=== PATIENT | male | born 1950 | race Two or more races ===

== ENCOUNTER 2020-04-04 07:11 | Day surgery (SDC) | payer MEDICARE, OTHER ==
[~2020-04-04] VITALS: Ht 180.3 cm; Wt 98.5 kg
[2020-04-04 07:30] VITALS: BP 131/84
[2020-04-04] MEDS ORDERED: FURO40TA4 PO (07:37)
[2020-04-04] MEDS ORDERED: SPIR50TA5 PO (07:37)
[2020-04-04] MEDS ORDERED: OMEP-50 PO (07:38)
[2020-04-04] MEDS ORDERED: albumin 25% 100mL bottle x 1 IV PRN (07:45)
[2020-04-04 09:09] VITALS: BP 130/79
[2020-04-04 09:24] VITALS: BP 133/66
[2020-04-04 09:39] VITALS: BP 125/67
[2020-04-04 09:54] VITALS: BP 130/68
[2020-04-04 10:09] VITALS: BP 130/71
[2020-04-04 11:30] LABS: GLUCOSE,BODY FLUID 111 MG/DL; LDH,BODY FLUID 45 U/L
[2020-04-04 11:44] LABS: TOTAL PROTEIN,BODY FLUID < 2.0 G/DL
[2020-04-04] MEDS ORDERED: FLU VACC QS2020-21(6MOS UP)/PF 60 MCG/0.5 ML SYRINGE IMVAC ONE (12:05)
[2020-04-04 12:10] LABS: BFAPPEAR HAZY; BFCOLOR YELLOW
[2020-04-04 12:11] LABS: BF MESOTHELIAL CELLS MANY; BF RBC COUNT 2380 /CU MM; BF WBC COUNT 131 /CU MM (0-1000); BFVOLUME 63 ML; LYMPHOCYTES,BODY FLUID 72 %; MONOCYTES,BODY FLUID 21 %; NEUTROPHILS,BODY FLUID 7 %
== END 2020-04-04 11:30 | disposition home or self-care (01) ==
LOC: SSTAY O 07:11
PROVIDERS: ATTEND Radiology Vascular & Interventional Radiology
DX: R18.8 Other ascites (principal)
CPT/HCPCS: 49083; 76700; 82945; 83615; 84157; 87070; 89051

== ENCOUNTER 2020-04-19 07:39 | Day surgery (SDC) | payer MEDICARE, OTHER ==
[~2020-04-19] VITALS: Ht 180.3 cm; Wt 93.3 kg
[~2020-04-19 07:39] MED LIST: FURO40TA4 PO; OMEP-50 PO; SPIR50TA5 PO
[2020-04-19 07:52] VITALS: BP 130/78
[2020-04-19] MEDS ORDERED: albumin 25% 100mL bottle x 1 IV PRN (08:10)
[2020-04-19] MEDS ORDERED: NO HOME MEDS (08:18)
[2020-04-19 09:06] VITALS: BP 130/78
[2020-04-19 09:15] VITALS: BP 107/62
[2020-04-19 09:30] VITALS: BP 105/56
[2020-04-19 09:45] VITALS: BP 110/70
== END 2020-04-19 09:55 | disposition home or self-care (01) ==
LOC: SSTAY O 07:39
PROVIDERS: ATTEND Radiology Vascular & Interventional Radiology
DX: R18.8 Other ascites (principal); K21.9 Gastro-esophageal reflux disease without esophagitis; Z98.890 Other specified postprocedural states; Z87.891 Personal history of nicotine dependence; Z79.899 Other long term (current) drug therapy
CPT/HCPCS: 49083

== ENCOUNTER 2020-04-29 08:13 | Day surgery (SDC) | payer MEDICARE, OTHER ==
[~2020-04-29] VITALS: Ht 180.3 cm; Wt 92.9 kg
[~2020-04-29 08:13] MED LIST changes: -FURO40TA4 PO; +NO HOME MEDS; -OMEP-50 PO; -SPIR50TA5 PO
[2020-04-29 08:35] VITALS: BP 113/73
[2020-04-29] MEDS ORDERED: albumin 25% 100mL bottle x 1 IV PRN (08:35)
[2020-04-29] MEDS ORDERED: FURO-150 PO (08:46)
[2020-04-29 09:04] VITALS: BP 125/76
[2020-04-29 09:19] VITALS: BP 103/70
== END 2020-04-29 09:40 | disposition home or self-care (01) ==
LOC: SSTAY O 08:13
PROVIDERS: ATTEND Radiology Diagnostic Radiology
DX: R18.8 Other ascites (principal); K21.9 Gastro-esophageal reflux disease without esophagitis; Z98.890 Other specified postprocedural states; Z79.899 Other long term (current) drug therapy
CPT/HCPCS: 49083

== ENCOUNTER 2020-05-09 08:36 | Day surgery (SDC) | payer MEDICARE, OTHER ==
[~2020-05-09] VITALS: Ht 180.3 cm; Wt 92.3 kg
[~2020-05-09 08:36] MED LIST changes: +FURO-150 PO; -NO HOME MEDS
[2020-05-09 09:15] VITALS: BP 114/75
[2020-05-09] MEDS ORDERED: albumin 25% 100mL bottle x 1 IV PRN (09:15)
[2020-05-09] MEDS ORDERED: potassium PO (09:32)
[2020-05-09 09:47] VITALS: BP 127/83
[2020-05-09 10:02] VITALS: BP 98/62
[2020-05-09 10:17] VITALS: BP 92/66
[2020-05-09 10:32] VITALS: BP 93/63
[2020-05-09 10:43] VITALS: BP 108/67
== END 2020-05-09 11:55 | disposition home or self-care (01) ==
LOC: SSTAY O 08:36
PROVIDERS: ATTEND Radiology Vascular & Interventional Radiology
DX: R18.8 Other ascites (principal); K21.9 Gastro-esophageal reflux disease without esophagitis; Z98.890 Other specified postprocedural states; Z87.891 Personal history of nicotine dependence; Z79.899 Other long term (current) drug therapy
CPT/HCPCS: 49083; P9047

== ENCOUNTER 2020-05-16 07:37 | Day surgery (SDC) | payer MEDICARE, OTHER ==
[2020-05-16] VITALS (8 sets, daily range): BP systolic 96–125; BP diastolic 49–81
[~2020-05-16] VITALS: Ht 180.3 cm; Wt 90.1 kg
[~2020-05-16 07:37] MED LIST changes: +potassium PO
[2020-05-16] MEDS ORDERED: albumin 25% 100mL bottle x 1 IV PRN (08:00)
== END 2020-05-16 10:25 | disposition home or self-care (01) ==
LOC: SSTAY O 07:37
PROVIDERS: ATTEND Radiology Diagnostic Radiology
DX: R18.8 Other ascites (principal); K21.9 Gastro-esophageal reflux disease without esophagitis; Z98.890 Other specified postprocedural states; Z87.891 Personal history of nicotine dependence; Z79.899 Other long term (current) drug therapy
CPT/HCPCS: 49083; P9047

== ENCOUNTER 2020-05-23 07:39 | Day surgery (SDC) | payer MEDICARE, OTHER ==
[2020-05-23] VITALS (7 sets, daily range): BP systolic 95–126; BP diastolic 66–78
[~2020-05-23] VITALS: Ht 180.3 cm; Wt 88.2 kg
[2020-05-23] MEDS ORDERED: normal saline 1000ml 1,000 ML IV PRN (07:55)
[2020-05-23] MEDS ORDERED: albumin 25% 100mL bottle x 1 IV PRN (07:55)
== END 2020-05-23 10:35 | disposition home or self-care (01) ==
LOC: SSTAY O 07:39
PROVIDERS: ATTEND Radiology Diagnostic Radiology
DX: R18.8 Other ascites (principal); K21.9 Gastro-esophageal reflux disease without esophagitis; Z98.890 Other specified postprocedural states; Z87.891 Personal history of nicotine dependence; Z79.899 Other long term (current) drug therapy
CPT/HCPCS: 49083; P9047

== ENCOUNTER 2020-05-30 06:52 | Day surgery (SDC) | payer MEDICARE, OTHER ==
[2020-05-30] MEDS ORDERED: TORS100T15 PO (07:16)
[2020-05-30] MEDS ORDERED: OMEP40CA13 PO (07:16)
[2020-05-30 07:20] VITALS: BP 94/66
[2020-05-30] MEDS ORDERED: albumin 25% 100mL bottle x 1 IV PRN (07:25)
[2020-05-30 08:32] VITALS: BP 101/65
[2020-05-30 08:57] VITALS: BP 73/48
[2020-05-30 09:07] VITALS: BP 73/48
[2020-05-30 09:15] VITALS: BP 79/54
[2020-05-30 09:30] VITALS: BP 87/57
== END 2020-05-30 09:40 | disposition home or self-care (01) ==
LOC: SSTAY O 06:52
PROVIDERS: ATTEND Radiology Diagnostic Radiology
DX: R18.8 Other ascites (principal); K21.9 Gastro-esophageal reflux disease without esophagitis; Z98.890 Other specified postprocedural states; Z79.899 Other long term (current) drug therapy
CPT/HCPCS: 49083; P9047

== ENCOUNTER 2020-06-23 08:09 | Day surgery (SDC) | payer MEDICARE, OTHER ==
[~2020-06-23] VITALS: Ht 180.3 cm; Wt 87.7 kg
[2020-06-23] VITALS (10 sets, daily range): BP systolic 96–113; BP diastolic 15–67
[~2020-06-23 08:09] MED LIST changes: -FURO-150 PO; +OMEP40CA13 PO; +TORS100T15 PO; -potassium PO
[2020-06-23] MEDS ORDERED: APIX5TAB3 PO (09:35)
[2020-06-23] MEDS ORDERED: MIDO10TA PO (09:43)
[2020-06-23] MEDS ORDERED: CIPR250T4 PO (09:44)
[2020-06-23] MEDS ORDERED: albumin 25% 100mL bottle x 1 IV PRN (09:50)
== END 2020-06-23 11:30 | disposition home or self-care (01) ==
LOC: SSTAY O 08:09
PROVIDERS: ATTEND Radiology Vascular & Interventional Radiology
DX: R18.8 Other ascites (principal); K21.9 Gastro-esophageal reflux disease without esophagitis; Z98.890 Other specified postprocedural states; Z87.891 Personal history of nicotine dependence; Z79.899 Other long term (current) drug therapy
CPT/HCPCS: 49083; P9047

== ENCOUNTER 2020-07-01 06:45 | Day surgery (SDC) | payer MEDICARE, OTHER ==
[2020-07-01] VITALS (10 sets, daily range): BP systolic 90–117; BP diastolic 50–68
[~2020-07-01] VITALS: Ht 180.3 cm; Wt 85.9 kg
[~2020-07-01 06:45] MED LIST changes: +APIX5TAB3 PO; +CIPR250T4 PO; +MIDO10TA PO
[2020-07-01] MEDS ORDERED: albumin 25% 100mL bottle x 1 IV PRN (07:15)
[2020-07-01] MEDS ORDERED: WARF-65 PO (07:24)
== END 2020-07-01 11:56 | disposition home or self-care (01) ==
LOC: SSTAY O 06:45
PROVIDERS: ATTEND Radiology Vascular & Interventional Radiology
DX: R18.8 Other ascites (principal); K21.9 Gastro-esophageal reflux disease without esophagitis; K75.81 Nonalcoholic steatohepatitis (NASH); Z79.01 Long term (current) use of anticoagulants; Z79.899 Other long term (current) drug therapy; Z87.891 Personal history of nicotine dependence; Z94.4 Liver transplant status; Z98.890 Other specified postprocedural states
CPT/HCPCS: 36415; 49083; 85610; P9047

== ENCOUNTER 2020-07-21 07:54 | Day surgery (SDC) | payer MEDICARE, OTHER ==
[~2020-07-21] VITALS: Ht 180.3 cm; Wt 86.0 kg
[2020-07-21] VITALS (8 sets, daily range): BP systolic 106–128; BP diastolic 58–76
[~2020-07-21 07:54] MED LIST changes: -CIPR250T4 PO; +WARF-65 PO
[2020-07-21] MEDS ORDERED: albumin 25% 100mL bottle x 1 IV PRN (08:20)
== END 2020-07-21 10:30 | disposition home or self-care (01) ==
LOC: SSTAY O 07:54
PROVIDERS: ATTEND Radiology Vascular & Interventional Radiology
DX: R18.8 Other ascites (principal); K21.9 Gastro-esophageal reflux disease without esophagitis; Z87.19 Personal history of other diseases of the digestive system; Z98.890 Other specified postprocedural states; Z87.891 Personal history of nicotine dependence; Z79.01 Long term (current) use of anticoagulants; Z79.899 Other long term (current) drug therapy
CPT/HCPCS: 36415; 49083; 85610; P9047

== ENCOUNTER 2020-07-28 07:22 | Day surgery (SDC) | payer MEDICARE, OTHER ==
[2020-07-28] VITALS (7 sets, daily range): BP systolic 114–141; BP diastolic 73–98
[~2020-07-28] VITALS: Ht 180.3 cm; Wt 87.1 kg
[~2020-07-28 07:22] MED LIST changes: -APIX5TAB3 PO
[2020-07-28] MEDS ORDERED: albumin 25% 100mL bottle x 1 IV PRN (07:50)
== END 2020-07-28 11:05 | disposition home or self-care (01) ==
LOC: SSTAY O 07:22
PROVIDERS: ATTEND Radiology Vascular & Interventional Radiology
DX: R18.8 Other ascites (principal); K21.9 Gastro-esophageal reflux disease without esophagitis; K55.069 Acute infarction of intestine, part and extent unspecified; Z98.890 Other specified postprocedural states; Z79.01 Long term (current) use of anticoagulants; Z79.899 Other long term (current) drug therapy
CPT/HCPCS: 36415; 49083; 85610; P9047

== ENCOUNTER 2020-08-04 07:56 | Day surgery (SDC) | payer MEDICARE, OTHER ==
[2020-08-04] VITALS (7 sets, daily range): BP systolic 95–111; BP diastolic 40–65
[~2020-08-04] VITALS: Ht 180.3 cm; Wt 85.2 kg
[2020-08-04] MEDS ORDERED: albumin 25% 100mL bottle x 1 IV PRN (08:25)
[2020-08-04] MEDS ORDERED: WARF3TAB56 PO (08:28)
== END 2020-08-04 11:30 | disposition home or self-care (01) ==
LOC: SSTAY O 07:56
PROVIDERS: ATTEND Radiology Vascular & Interventional Radiology
DX: R18.8 Other ascites (principal); K21.9 Gastro-esophageal reflux disease without esophagitis; Z87.19 Personal history of other diseases of the digestive system; Z79.01 Long term (current) use of anticoagulants; Z98.890 Other specified postprocedural states; Z87.891 Personal history of nicotine dependence; Z79.899 Other long term (current) drug therapy
CPT/HCPCS: 36415; 49083; 85610; P9047

== ENCOUNTER 2020-08-11 07:44 | Day surgery (SDC) | payer MEDICARE, OTHER ==
[~2020-08-11] VITALS: Ht 180.3 cm; Wt 86.1 kg
[~2020-08-11 07:44] MED LIST changes: +WARF3TAB56 PO
[2020-08-11 08:00] VITALS: BP 148/97
[2020-08-11] MEDS ORDERED: albumin 25% 100mL bottle x 1 IV PRN (08:00)
--- NOTE | 2020-08-11 10:08 | NUR ---
Procedure cancelled due to INR 2.7
== END 2020-08-11 10:09 | disposition home or self-care (01) ==
LOC: SSTAY O 07:44
PROVIDERS: ATTEND Radiology Vascular & Interventional Radiology
DX: R18.8 Other ascites (principal); Z53.8 Procedure and treatment not carried out for other reasons; K21.9 Gastro-esophageal reflux disease without esophagitis; Z98.890 Other specified postprocedural states; Z87.891 Personal history of nicotine dependence; Z79.01 Long term (current) use of anticoagulants; Z79.899 Other long term (current) drug therapy
CPT/HCPCS: 36415; 76705; 85610

== ENCOUNTER 2020-08-15 07:41 | Day surgery (SDC) | payer MEDICARE, OTHER ==
[2020-08-15] VITALS (7 sets, daily range): BP systolic 105–132; BP diastolic 63–89
[~2020-08-15] VITALS: Ht 180.3 cm; Wt 87.0 kg
[~2020-08-15 07:41] MED LIST changes: -WARF-65 PO
[2020-08-15] MEDS ORDERED: albumin 25% 100mL bottle x 1 IV PRN (08:10)
== END 2020-08-15 11:25 | disposition home or self-care (01) ==
LOC: SSTAY O 07:41
PROVIDERS: ATTEND Radiology Vascular & Interventional Radiology
DX: R18.8 Other ascites (principal); K21.9 Gastro-esophageal reflux disease without esophagitis; Z87.19 Personal history of other diseases of the digestive system; Z98.890 Other specified postprocedural states; Z87.891 Personal history of nicotine dependence; Z79.01 Long term (current) use of anticoagulants; Z79.899 Other long term (current) drug therapy
CPT/HCPCS: 36415; 49083; 85610; P9047

== ENCOUNTER 2020-08-22 07:35 | Day surgery (SDC) | payer MEDICARE, OTHER ==
[2020-08-22] VITALS (8 sets, daily range): BP systolic 97–122; BP diastolic 57–78
[~2020-08-22] VITALS: Ht 180.3 cm; Wt 84.6 kg
[~2020-08-22 07:35] MED LIST changes: -OMEP40CA13 PO; -TORS100T15 PO
[2020-08-22] MEDS ORDERED: albumin 25% 100mL bottle x 1 IV PRN (07:55)
[2020-08-22] MEDS ORDERED: FURO-150 PO (08:04)
== END 2020-08-22 11:10 | disposition home or self-care (01) ==
LOC: SSTAY O 07:35
PROVIDERS: ATTEND Radiology Vascular & Interventional Radiology
DX: R18.8 Other ascites (principal); K21.9 Gastro-esophageal reflux disease without esophagitis; K55.069 Acute infarction of intestine, part and extent unspecified; Z87.19 Personal history of other diseases of the digestive system; Z98.890 Other specified postprocedural states; Z87.891 Personal history of nicotine dependence; Z79.01 Long term (current) use of anticoagulants; Z79.899 Other long term (current) drug therapy
CPT/HCPCS: 36415; 49083; 85610; P9047

== ENCOUNTER 2020-08-29 07:39 | Day surgery (SDC) | payer MEDICARE, OTHER ==
[2020-08-29] VITALS (9 sets, daily range): BP systolic 88–124; BP diastolic 58–81
[~2020-08-29] VITALS: Ht 180.3 cm; Wt 84.1 kg
[~2020-08-29 07:39] MED LIST changes: +FURO-150 PO
[2020-08-29] MEDS ORDERED: albumin 25% 100mL bottle x 1 IV PRN (08:05)
== END 2020-08-29 12:15 | disposition home or self-care (01) ==
LOC: SSTAY O 07:39
PROVIDERS: ATTEND Radiology Vascular & Interventional Radiology
DX: R18.8 Other ascites (principal); K21.9 Gastro-esophageal reflux disease without esophagitis; K55.069 Acute infarction of intestine, part and extent unspecified; Z79.01 Long term (current) use of anticoagulants; Z98.890 Other specified postprocedural states; Z87.891 Personal history of nicotine dependence
CPT/HCPCS: 36415; 49083; 85610; P9047

== ENCOUNTER 2020-08-29 19:34 | Emergency (ER) | payer MEDICARE, OTHER ==
[~2020-08-29] VITALS: Ht 180.3 cm; Wt 79.1 kg
[2020-08-29] MEDS ORDERED: LIDOcaine 1% W/epiNEPHrine 1:200,000 10ml vial IJ ONE (21:50)
[2020-08-29] MEDS ORDERED: LIDOcaine 1% W/epiNEPHrine 1:100,000 20ml vial IJ ONE (21:55)
[2020-08-29 22:43] VITALS: BP 98/61
== END 2020-08-29 22:44 | disposition home or self-care (01) ==
LOC: ER 20:09
DX: T81.9XXA Unspecified complication of procedure, initial encounter (principal); Z79.899 Other long term (current) drug therapy; X58.XXXA Exposure to other specified factors, initial encounter; Y93.89 Activity, other specified; Y92.89 Other specified places as the place of occurrence of the external cause; Y99.8 Other external cause status
CPT/HCPCS: 49083; 99281; 99285